=== PATIENT | female | born 1980 | race African-American/Black ===

== ENCOUNTER 2024-12-06 08:16 | Emergency (ER) | payer BC ==
[2024-12-06] MEDS ORDERED: Iopamidol 370 76% 100 ML VIAL ONE (09:00)
[2024-12-06 09:05] LABS: #Basophils 0.1 thou/uL (0.0-0.2); #Eosinophils 0.2 thou/uL (0.0-0.7); #Lymphocytes 1.6 thou/uL (1.20-3.40); #Monocytes 0.6 thou/uL (0.11-0.59); #Neutrophils 3.3 thou/uL (1.40-6.50); %Basophils 1.6 % (0.0-1.0); %Eosinophils 3.5 % (0.0-10.0); %Lymphocytes 27.5 % (21.0-51.0); %Monocytes 9.9 % (0.0-10.0); %Neutrophils 57.4 % (42.0-75.0); Hematocrit 37.6 % (36.0-47.0); Hemoglobin 12.1 g/dL (12.0-16.0); Mean Corpuscular Hemoglobin 28.6 pg (27.0-31.0); Mean Corpuscular Volume 89.2 fl (78.0-98.0); Platelet Count 322 10x3/uL (130-400); Red Blood Cell (RBC) Count 4.21 mill/uL (4.20-5.40); White Blood Cell (WBC) Count 5.7 10x3/uL (4.8-10.8)
[2024-12-06] MEDS ORDERED: Mag-Al Plus 1200/1200/120 MG (30 mL) UDCUP ONE (09:14)
[2024-12-06] MEDS ORDERED: Ondansetron PF 4 MG/2 ML Vial ONE (09:14)
[2024-12-06] MEDS ORDERED: Lidocaine Viscous Sol 2% 15 ml UD Cup ONE (09:15)
[2024-12-06] MEDS ORDERED: Famotidine/PF 20 mg/2ml Vial ONE (09:15)
[2024-12-06 09:48] LABS: ALT (SGPT) 18 U/L (Less than 34); AST (SGOT) 23 U/L (11-34); Albumin 3.8 g/dL (3.1-4.5); Alkaline Phosphatase 93 U/L (40-110); Anion Gap 10 mmol/L (10-20); BUN (Urea Nitrogen) 10 mg/dL (7.0-18.7); Bilirubin, Total 0.4 mg/dL (0.3-1.2); Calc. Creatinine Clearance 0 mL/min (70-130); Carbon Dioxide 28 mmol/L (22-29); Chloride 100 mmol/L (98-107); Globulin 3.4 g/dL (2.4-3.5); Glucose 107 mg/dL (70-105); Lipase 26 U/L (8-78); Potassium 4.0 mmol/L (3.5-5.1); Sodium 134 mmol/L (136-145)
[2024-12-06 09:56] LABS: Calcium 9.0 mg/dL (7.6-10.4)
[2024-12-06 10:11] LABS: Glucose, Urine (Dipstick) Negative (Negative); Leukocyte Negative (Negative); Protein, Urine (Dipstick) Negative (Neg-Trace); Specific Gravity, Urine 1.015 (1.005-1.030)
[2024-12-06 10:28] LABS: CAUTI Indications for Culture Pelvic or flank pain; RBC/HPF None Seen HPF (0-3); WBC/HPF None Seen HPF (0-3)
[2024-12-06 10:29] LABS: Bacteria/HPF Rare-Few HPF (None Seen)
[2024-12-06 10:30] LABS: Urine Culture Reflex No No
== END 2024-12-06 10:28 | disposition home or self-care (01) ==
LOC: NAV ERS 08:16
DX: K29.70 Gastritis, unspecified, without bleeding (principal); I10 Essential (primary) hypertension; K21.9 Gastro-esophageal reflux disease without esophagitis; Z79.899 Other long term (current) drug therapy
CPT/HCPCS: 74177; 80053; 81001; 83690; 85025; 96374; 96375; J1308; J2405; Q9967